=== PATIENT | male | born 1990 | race Caucasian/White ===

== ENCOUNTER → 2022-01-26 | Outpatient (REF) ==
--- NOTE | 2022-01-26 12:35 | Diagnostic Imaging Report ---
INDICATION: Back pain status post injury. COMPARISON: None FINDINGS: Frontal and lateral views of the lumbar spine were obtained. Alignment and vertebral heights are maintained. Limbus vertebral body of L4 is noted. There is no fracture or destructive process. Multilevel degenerative disease is noted in the lumbar spine. Limited views of the abdomen demonstrate nonobstructive bowel gas pattern. IMPRESSION: 1. No acute fracture or dislocation of the lumbar spine. 2. Mild multilevel degenerative changes. Dictated by: Dictated on workstation # [id number]
== END | disposition home or self-care (01) ==
LOC: OCC 11:44
PROVIDERS: ATTEND Nurse Practitioner Family
DX: Z01.818 Encounter for other preprocedural examination (principal)
CPT/HCPCS: 72100